=== PATIENT | male | born 1950 | race Caucasian/White ===

== ENCOUNTER 2018-02-08 06:55 | Day surgery (SDC) | payer MEDICARE ==
[~2018-02-08 06:55] MED LIST: ACETAMINOPHEN 325 MG TAB PO
[2018-02-08] MEDS ORDERED: PROPARACAINE 0.5% OPHTH SOL 15ML OS (07:01)
[2018-02-08] MEDS ORDERED: fentaNYL 100 MCG/2 ML INJECTION (J3010) As Ordered (07:12)
[2018-02-08] MEDS ORDERED: MIDAZOLAM INJ 2 MG/2 ML VIAL (J2250) As Ordered (07:12)
[2018-02-08] MEDS: LIDOCAINE 3.5 % 1ML OPHTH TOPICAL GEL OU (07:30)
[2018-02-08] MEDS: TROPICAMIDE 1% OPHTH SOLN 2ML OS (07:35)
[2018-02-08] MEDS: CYCLOPENTOLATE 2% OPHTH SOLN 2ML BTL OS (07:35)
[2018-02-08] MEDS: PHENYLEPHRINE 2.5% OPHTH SOL 2ML OS (07:35)
[2018-02-08] MEDS: OFLOXACIN 0.3 % (OCUFLOX) OPTH SOL 5ML OS (07:35)
[2018-02-08] MEDS: PHENYLEPHRINE HCL 10 % OPHTH. SOL 5ML OS (08:05)
[2018-02-08] MEDS ORDERED: PROPARACAINE 0.5% OPHTH SOL 15ML As Ordered (09:06)
[2018-02-08] MEDS: POVIDONE-IODINE 5% OPHTH PREP SOL 30ML As Ordered (09:12)
[2018-02-08] MEDS: BALANCED SALT IRRIGATION SOLUTION 500ML BAG (FOR OR EYE MACHINE) As Ordered (09:12)
[2018-02-08] MEDS: HEALON DUET PRO(HEALON 10MG/ML 0.55ML & HEALON ENDOCOAT 30MG/ML 0.85ML) As Ordered (09:12)
[2018-02-08] MEDS: CEFUROXIME 1MG/0.1ML INTRACAMERAL INJ As Ordered (09:14)
[2018-02-08] MEDS: LIDOCAINE 1% SDV 5 ML VIAL As Ordered (09:14)
[2018-02-08] MEDS ORDERED: HEALON DUET PRO(HEALON 10MG/ML 0.55ML & HEALON ENDOCOAT 30MG/ML 0.85ML) As Ordered (09:18)
[2018-02-08] MEDS ORDERED: ACETYLCHOLINE OPHTH SOLN 1% 2ML (MIOCHOL-E) As Ordered (09:20)
[2018-02-08] MEDS ORDERED: AcetaZOLAMIDE 500 MG ER CAP As Ordered (09:39)
[2018-02-08] MEDS: AcetaZOLAMIDE 500 MG ER CAP PO (09:42)
[2018-02-08] MEDS: KETOROLAC 0.5% OPHTH SOLN OS (09:45)
[2018-02-08] MEDS ORDERED: TRIMETHOBENZAMIDE 300 MG CAP PO (09:45)
[2018-02-08] MEDS ORDERED: ONDANSETRON 4MG/2ML VIAL (J2405) IV (09:45)
== END 2018-02-08 09:57 | disposition home or self-care (01) ==
LOC: M SDC 06:55
DX: H25.12 Age-related nuclear cataract, left eye (principal); I10 Essential (primary) hypertension; E78.5 Hyperlipidemia, unspecified; H02.409 Unspecified ptosis of unspecified eyelid; J41.0 Simple chronic bronchitis; R29.898 Other symptoms and signs involving the musculoskeletal system; F41.9 Anxiety disorder, unspecified; F32.9 Major depressive disorder, single episode, unspecified; J44.9 Chronic obstructive pulmonary disease, unspecified; R06.2 Wheezing; N40.0 Benign prostatic hyperplasia without lower urinary tract symptoms; F42.9 Obsessive-compulsive disorder, unspecified; K04.7 Periapical abscess without sinus; Z79.899 Other long term (current) drug therapy; Z87.891 Personal history of nicotine dependence
CPT/HCPCS: 66984

== ENCOUNTER 2018-03-08 09:35 | Day surgery (SDC) | payer MEDICARE ==
[~2018-03-08] VITALS: Ht 175.3 cm; Wt 76.7 kg
[~2018-03-08 09:35] MED LIST changes: -ACETAMINOPHEN 325 MG TAB PO; +BALANCED SALT IRRIGATION SOLUTION 500ML BAG (FOR OR EYE MACHINE) As Ordered ONE; +CEFUROXIME 1MG/0.1ML INTRACAMERAL INJ As Ordered ONE; +CYCLOPENTOLATE 2% OPHTH SOLN 2ML BTL OD ONE; +FINA5TAB2; +FLOM0.4C39; +HEALON DUET PRO(HEALON 10MG/ML 0.55ML & HEALON ENDOCOAT 30MG/ML 0.85ML) As Ordered ONE; +IPRA0.00 INH; +LIDOCAINE 1% SDV 5 ML VIAL As Ordered ONE; +LIDOCAINE 3.5 % 1ML OPHTH TOPICAL GEL OU ONE; +METO1TAB7; +OFLOXACIN 0.3 % (OCUFLOX) OPTH SOL 5ML OD ONE; +PHENYLEPHRINE 2.5% OPHTH SOL 2ML OD ONE; +PHENYLEPHRINE HCL 10 % OPHTH. SOL 5ML OD PRN; +POVIDONE-IODINE 5% OPHTH PREP SOL 30ML As Ordered ONE; +PRED5TA; +QUIN1TAB4 PO; +SERT-138; +SIMV40TA2; +TROPICAMIDE 1% OPHTH SOLN 2ML OD ONE; +VITA100067 PO
[2018-03-08 11:40] VITALS: BP 108/71
[2018-03-08] MEDS ORDERED: MIDAZOLAM INJ 2 MG/2 ML VIAL (J2250) As Ordered ONE (12:19)
[2018-03-08] MEDS ORDERED: fentaNYL 100 MCG/2 ML INJECTION (J3010) As Ordered ONE (12:19)
--- NOTE | 2018-03-09 10:02 | RO ---
DATE OF PROCEDURE: 03/08/2018 PREPROCEDURE DIAGNOSIS: Age-related nuclear cataract right eye. POSTPROCEDURE DIAGNOSIS: Age-related nuclear cataract right eye PROCEDURE: Femtosecond cataract extraction with posterior chamber intraocular lens. The lens used was AU00T0, 23.5 diopter. 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 DESCRIPTION OF PROCEDURE: The patient was brought to the operating room and put under the femtosecond laser. A lid speculum was placed between the lids, and the laser was lowered on. Docking was achieved with good suction. The laser procedure was performed with no difficulty. The laser was then removed from the eye, and the lid speculum was removed. The laser was moved over to the operating microscope and prepped and draped in the usual fashion. A lid speculum was placed between the lids. The eye was fixated. The side port incision was opened up with a spatula. 1% nonpreservative lidocaine was instilled; then, viscoelastic was instilled. The main incision was then opened with the spatula. The capsulorrhexis was removed from the eye with the Utrata forceps. The lens was then hydrodissected, and a phacoemulsification unit was used to make a groove in the nucleus and one meridian. The nucleus was cracked into four quadrants, and then each quadrant was removed with the phacoemulsification unit. Any remaining cortex was removed with the irrigation and aspiration (I and A) unit. The capsular bag was refilled with viscoelastic. A posterior chamber intraocular lens was placed in the capsular bag. The remaining viscoelastic was removed. The wound was hydrated. Miochol and cefuroxime were instilled. The wound was watertight. The patient tolerated the procedure well and went to the recovery room in stable condition.
== END 2018-03-08 12:44 | disposition home or self-care (01) ==
LOC: M SDC 09:35
PROVIDERS: ATTEND Ophthalmology
DX: H25.11 Age-related nuclear cataract, right eye (principal); J44.9 Chronic obstructive pulmonary disease, unspecified; I10 Essential (primary) hypertension; Z87.891 Personal history of nicotine dependence; Z79.899 Other long term (current) drug therapy; F32.9 Major depressive disorder, single episode, unspecified; F41.9 Anxiety disorder, unspecified; N40.0 Benign prostatic hyperplasia without lower urinary tract symptoms
CPT/HCPCS: 66984; J2250; J3010; V2632